=== PATIENT | female | born 1940 | race Caucasian/White ===

== ENCOUNTER 2016-09-29 16:43 | Emergency (ER) | payer SELFPAY ==
[2016-09-29] MEDS ORDERED: cefTRIAXone VIAL(*) 1,000 MG VIAL IM ONE (20:20)
[2016-09-29] MEDS ORDERED: Sulfamethox/Trimethoprim DS 800/160* TAB PO ONE (20:24)
[2016-09-29] MEDS ORDERED: Lidocaine 1%* 5 ML VIAL ONE (20:26)
[2016-09-29 21:14] VITALS: BP 166/89
--- NOTE | 2016-09-30 22:29 | ED ---
Gunnar Torres Adam, scribed for Esequiel Fleming MD on 09/29/16 at 2003 . Skin Complaint - HPI Summary HPI Summary: Pt is a 76 year old female presenting with facial swelling and redness. She states that 1 week ago she developed swelling on the left side of her neck. In the days since then the swelling gradually spread up to the back of her ear, her left cheek, her nose, and somewhat to her right cheek. The areas of swelling are accompanied by redness. She states that the affected areas are not painful but feel hot. It is not itchy. Pt also c/o back pain which she describes as a deep ache along the spine and which is new this week. She denies any pus or drainage. PMHx of hypothyroidism. - History of Current Complaint Chief Complaint: EDGeneral Time Seen by Provider: 09/29/16 19:49 Stated Complaint: SENT FROM [facility] Hx Obtained From: Patient Onset/Duration: Started Days Ago, Atraumatic, Still Present Timing: Constant Onset Severity: Mild Current Severity: Moderate Pain Intensity: 0 Pain Scale Used: 0-10 Numeric Skin Location: Face, Neck Character: Swelling, Redness Aggravating Symptom(s): Nothing Alleviating Symptom(s): Nothing PMH/Surg Hx/FS Hx/Imm Hx Endocrine/Hematology History: Reports: Hx Thyroid Disease - Hypo Denies: Hx Diabetes Infectious Disease History: No Infectious Disease History: Denies: Traveled Outside the [place] in Last 30 Days - Family History Known Family History: Positive: Other - Severe asthma (mother). Trigeminal neuralgia (father and grandparent) - Social History Occupation: Retired Lives: Alone Hx Substance Use: No Substance Use Type: Reports: None Review of Systems Negative: Fever, Chills Negative: Erythema Negative: Sore Throat Negative: Chest Pain Negative: Shortness Of Breath, Cough Negative: Abdominal Pain, Vomiting, Nausea Negative: dysuria, hematuria Positive: Edema - Face and neck, Other - Back pain Positive: Other - Redness accompanying the swelling in the face and neck Neurological: Other - Negative dizziness All Other Systems Reviewed And Are Negative: Yes Physical Exam - Summary Physical Exam Summary: Constitutional: Well-developed, Well-nourished, Alert. (-) Distressed Skin: Erythema over bridge of nose, right infraorbital, and left infraorbital. Warm to touch. No induration or fluctuance. HENT: Normocephalic; Atraumatic. Eyes: Conjunctiva normal. EOMI. Neck: Musculoskeletal ROM normal neck. (-) JVD, (-) Stridor, (-) Tracheal deviation. No lymphadenopathy. Cardio: Rhythm regular, rate normal, Heart sounds normal; Intact distal pulses; The pedal pulses are 2+ and symmetric. Radial pulses are 2+ and symmetric. (-) Murmur Pulmonary/Chest wall: Effort normal. (-) Respiratory distress, (-) Wheezes, (-) Rales Abd: Soft, (-) Tenderness, (-) Distension, (-) Guarding, (-) Rebound Musculoskeletal: (-) Edema Lymph: (-) Cervical adenopathy Neuro: Alert, Oriented x3 Psych: Mood and affect Normal Triage Information Reviewed: Yes Vital Signs On Initial Exam: Initial Vitals Temp Pulse Resp BP Pulse Ox 97.3 F 109 20 158/92 99 09/29/16 16:47 09/29/16 16:47 09/29/16 16:47 09/29/16 16:47 09/29/16 16:47 Vital Signs Reviewed: Yes Diagnostics - Vital Signs Vital Signs Temp Pulse Resp BP Pulse Ox 09/29/16 18:08 98.3 F 95 16 170/105 98 09/29/16 16:47 97.3 F 109 20 158/92 99 - Laboratory Lab Statement: Any lab studies that have been ordered have been reviewed, and results considered in the medical decision making process. Course/Dx - Diagnoses Provider Diagnoses: Facial cellulitis Discharge - Discharge Plan Condition: Stable Disposition: HOME Patient Education Materials: Cellulitis (ED) Additional Instructions: Follow up in 3 days (Wednesday10/02/16) at: [facility] [place] [address] The documentation as recorded by the Gunnar tan Adam accurately reflects the service I personally performed and the decisions made by , Esequiel Fleming MD.
== END 2016-09-29 21:12 | disposition home or self-care (01) ==
LOC: ED 16:43
DX: L03.211 Cellulitis of face (principal); M54.9 Dorsalgia, unspecified
CPT/HCPCS: 96372; 99282; A9270-GY; J0696

== ENCOUNTER 2016-10-02 11:04 | Emergency (ER) | payer SELFPAY ==
[2016-10-02 13:16] VITALS: BP 174/83
--- NOTE | 2016-10-02 14:13 | UC ---
CARLOS General HPI - HPI Summary HPI Summary: here for recheck of facial cellulitis seen at [facility] on 09/28/16 started on keflex and bactrim taking medication without any difficulty states she is feeling much better- redness and swelling reducing denies fever and pain - History of Current Complaint Chief Complaint: Nickolas Stated Complaint: RECHECK OF SWOLLEN AREA ON FACE Time Seen by Provider: 10/02/16 14:01 Hx Obtained From: Patient - Allergy/Home Medications Allergies/Adverse Reactions: Allergies Allergy/AdvReac Type Severity Reaction Status Date / Time Unable to Obtain Allergy Verified 09/29/16 20:35 Home Medications: Home Medications Levothyroxine TAB* [Synthroid 150 MCG TAB*] 150 mcg PO DAILY 10/02/16 [History Confirmed 10/02/16] PMH/Surg Hx/FS Hx/Imm Hx Previously Healthy: No - facila cellulitis Endocrine History Of: Reports: Thyroid Disease - Hypo Denies: Diabetes - Family History Known Family History: Positive: Other - Severe asthma (mother). Trigeminal neuralgia (father and grandparent) Negative: Cardiac Disease, Hypertension, Diabetes - Social History Occupation: Retired Lives: With Family Alcohol Use: None Substance Use Type: None Smoking Status (MU): Never Smoked Tobacco Review of Systems Constitutional: Negative Skin: Other - cellulits left side of face Eyes: Negative ENT: Negative Respiratory: Negative Cardiovascular: Negative Gastrointestinal: Negative Genitourinary: Negative Motor: Negative Neurovascular: Negative Musculoskeletal: Negative Neurological: Negative Psychological: Negative All Other Systems Reviewed And Are Negative: Yes Physical Exam Triage Information Reviewed: Yes Appearance: No Pain Distress, Well-Nourished Vital Signs: Initial Vital Signs Temp 98.3 F 10/02/16 13:08 Pulse 81 10/02/16 13:08 Resp 16 10/02/16 13:08 BP 174/83 10/02/16 13:08 Pulse Ox 97 10/02/16 13:08 Vital Signs Reviewed: Yes Eyes: Positive: Conjunctiva Clear ENT: Positive: Pharynx normal, TMs normal. Negative: Nasal congestion Neck: Positive: No Lymphadenopathy Respiratory: Positive: Lungs clear, Normal breath sounds, No respiratory distress Cardiovascular: Positive: RRR, No Murmur, Pulses Normal Abdomen Description: Positive: Nontender, Soft Bowel Sounds: Positive: Present Musculoskeletal: Positive: No Edema Neurological Exam: Normal Psychological Exam: Normal Skin: Positive: Other - left side of face- no erythema noted, no facial edema Course/Dx - Course Course Of Treatment: exam completed. cellulitis resolving - Differential Dx - Multi-Symptom Differential Diagnoses: Other - cellulitis Provider Diagnoses: facial cellulitis- resolving. elevated high blood pressure without dx of HTN Discharge - Discharge Plan Condition: Stable Disposition: HOME Patient Education Materials: Cellulitis (ED) Referrals: Non Staff,Doctor [Primary Care Provider] - [facility] [Outside] Additional Instructions: Your blood pressure is elevated. Please contact your primary care provider within 1 day -4 weeks for further evaluation Please continuing taking antibiotic as directed Increase fluids and rest Take acetaminophen or ibuprofen for fever or pain Please review your discharge instructions. If your symptoms do not improve please call your primary care provider or return to urgent care.
== END 2016-10-02 14:25 | disposition home or self-care (01) ==
LOC: UCEAST 11:04
DX: L03.211 Cellulitis of face (principal); E03.9 Hypothyroidism, unspecified; R03.0 Elevated blood-pressure reading, without diagnosis of hypertension
CPT/HCPCS: 99211; G0463